=== PATIENT | female | born 1940 | race Caucasian/White ===

== ENCOUNTER 2020-12-28 12:18 | Emergency (ER) | payer MEDICARE ==
[~2020-12-28 12:18] MED LIST: ASPIR 8181 MG PO; CATAPRES 0.1MG0.1 MG PO; GLUCOPHAGE1000 MG PO; ISOSORBIDE MONO60 MG PO; KLONOPIN TAB 00.5 MG PO; LEVEMIR100 UNIT/1 SQ; LIPITOR TAB 2020 MG PO; LISINOPRIL10 MG PO; METOPROLOL TART25 MG PO; NITROSTAT0.4 MG PO; NORVASC 5 MG TAB5 MG PO; NOVOLOG 10100 UNITS1 SQ; OMEPRAZOLE40 MG PO; ZETIA 10 MG TAB10 MG PO
[2020-12-28 14:48] LABS: HEMOGLOBIN 12.3 gm/dl (12.3-15.3)
[2020-12-28 14:55] LABS: RED BLOOD COUNT 4.43 M/UL (4.00-5.10); WHITE BLOOD COUNT 14.3 K/UL (4.5-11.0)
[2020-12-28 15:09] LABS: BUN/CREATININE RATIO 18 (0-10)
== END 2020-12-28 17:15 | disposition home or self-care (01) ==
LOC: ER1 12:18
PROVIDERS: Physician Assistant
DX: D72.829 Elevated white blood cell count, unspecified (principal); E11.9 Type 2 diabetes mellitus without complications; I11.0 Hypertensive heart disease with heart failure; Z20.822 Contact with and (suspected) exposure to COVID-19; Z88.2 Allergy status to sulfonamides; Z90.710 Acquired absence of both cervix and uterus
CPT/HCPCS: 36600; 71045; 80053; 82550; 82553; 82803; 83874; 83880; 84484; 85025; 93005; 99285; U0002

== ENCOUNTER 2021-08-02 13:18 | Inpatient (IN) | payer MEDICARE, MEDICAID ==
[~2021-08-02] VITALS: Ht 162.6 cm; Wt 65.8 kg
[~2021-08-02 13:18] MED LIST changes: +METOPROLOL SUCC25 MG PO; -METOPROLOL TART25 MG PO
[2021-08-02 14:41] LABS: HEMOGLOBIN 13.2 gm/dl (12.3-15.3); RED BLOOD COUNT 4.61 M/UL (4.00-5.10); WHITE BLOOD COUNT 23.2 K/UL (4.5-11.0)
[2021-08-02 15:21] LABS: BUN/CREATININE RATIO 22 (0-10)
[2021-08-02] MEDS ORDERED: NOVOLIN N100 UNIT/1 SQ ×2 (18:49→18:50)
[2021-08-02] MEDS ORDERED: HYDROCODON-ACE1 EAC2 PO (18:51)
[2021-08-02] MEDS ORDERED: ESCITALOPRAM OX10 MG PO (18:51)
[2021-08-02] MEDS ORDERED: FUROSEMIDE40 MG PO (18:51)
[2021-08-02] MEDS ORDERED: JANUVIA 100 MG100 MG PO (18:52)
[2021-08-03 07:50] LABS: HEMOGLOBIN 11.6 gm/dl (12.3-15.3)
[2021-08-03 07:56] LABS: BUN/CREATININE RATIO 20 (0-10); RED BLOOD COUNT 4.11 M/UL (4.00-5.10); WHITE BLOOD COUNT 12.7 K/UL (4.5-11.0)
[2021-08-05 08:08] LABS: BUN/CREATININE RATIO 21 (0-10)
[2021-08-05 08:47] LABS: HEMOGLOBIN 13.2 gm/dl (12.3-15.3); RED BLOOD COUNT 4.68 M/UL (4.00-5.10); WHITE BLOOD COUNT 12.7 K/UL (4.5-11.0)
[2021-08-05] MEDS ORDERED: LEVOFLOXACIN500 MG PO (12:59)
[2021-08-05] MEDS ORDERED: METOPROLOL SUCC25 MG PO (12:59)
[2021-08-05] MEDS ORDERED: DONEPEZIL HCL5 MG PO (12:59)
[2021-08-05] MEDS ORDERED: LANTUS INS100 UTS/M1 SQ (13:00)
== END 2021-08-05 01:45 | disposition home health service (06) | DRG 871 ==
LOC: ER1 13:18 → MED SURG 4 16:30 → CDU 16:30 → MED SURG 4 19:21
PROVIDERS: Family Medicine; ADMIT Internal Medicine
DX: A41.9 Sepsis, unspecified organism (principal); J18.9 Pneumonia, unspecified organism; E87.1 Hypo-osmolality and hyponatremia; J44.0 Chronic obstructive pulmonary disease with (acute) lower respiratory infection; Z20.822 Contact with and (suspected) exposure to COVID-19; W18.30XA Fall on same level, unspecified, initial encounter; R53.81 Other malaise; E87.6 Hypokalemia; R29.6 Repeated falls; E83.42 Hypomagnesemia; E11.65 Type 2 diabetes mellitus with hyperglycemia; M19.90 Unspecified osteoarthritis, unspecified site; F03.90 Unspecified dementia, unspecified severity, without behavioral disturbance, psychotic disturbance, mood disturbance, and anxiety; Z79.01 Long term (current) use of anticoagulants; Z79.82 Long term (current) use of aspirin; Z88.1 Allergy status to other antibiotic agents; Z79.4 Long term (current) use of insulin; Z95.0 Presence of cardiac pacemaker; Z88.2 Allergy status to sulfonamides
CPT/HCPCS: 36415; 70450; 71045; 80048; 80053; 81001; 82009; 82550; 82553; 82962; 83036; 83605; 83735; 83874; 84439; 84443; 84484; 85025; 87040; 93005; 96374; 99285; J0696; J1650; J1956; J7030; U0002

== ENCOUNTER 2021-08-29 15:29 | Emergency (ER) | payer MEDICARE ==
[~2021-08-29 15:29] MED LIST changes: +DONEPEZIL HCL5 MG PO; +ESCITALOPRAM OX10 MG PO; +FUROSEMIDE40 MG PO; +HYDROCODON-ACE1 EAC2 PO; +JANUVIA 100 MG100 MG PO; +LANTUS INS100 UTS/M1 SQ; +LEVOFLOXACIN500 MG PO; +NOVOLIN N100 UNIT/1 SQ
[2021-08-29 18:35] LABS: HEMOGLOBIN 12.5 gm/dl (12.3-15.3); RED BLOOD COUNT 4.42 M/UL (4.00-5.10); WHITE BLOOD COUNT 13.8 K/UL (4.5-11.0)
[2021-08-29 19:09] LABS: BUN/CREATININE RATIO 21 (0-10)
== END 2021-08-29 21:40 | disposition home or self-care (01) ==
LOC: ER1 15:29
PROVIDERS: Emergency Medicine
DX: R10.9 Unspecified abdominal pain (principal); E11.9 Type 2 diabetes mellitus without complications; J44.9 Chronic obstructive pulmonary disease, unspecified; Z90.710 Acquired absence of both cervix and uterus; Z95.0 Presence of cardiac pacemaker; Z20.822 Contact with and (suspected) exposure to COVID-19
CPT/HCPCS: 71045; 80053; 81001; 82550; 82553; 83605; 83690; 83874; 84484; 85025; 96374; 96375; 99284; J2270; J2405; Q9967; U0002

== ENCOUNTER 2021-09-29 16:08 | Emergency (ER) | payer MEDICARE ==
[2021-09-29 18:35] LABS: HEMOGLOBIN 12.2 gm/dl (12.3-15.3); WHITE BLOOD COUNT 13.7 K/UL (4.5-11.0)
[2021-09-29 19:09] LABS: RED BLOOD COUNT 4.27 M/UL (4.00-5.10)
== END 2021-09-29 22:53 | disposition home or self-care (01) ==
LOC: ER1 16:08
PROVIDERS: Physician Assistant
DX: R16.1 Splenomegaly, not elsewhere classified (principal); E11.9 Type 2 diabetes mellitus without complications; I48.91 Unspecified atrial fibrillation; F03.90 Unspecified dementia, unspecified severity, without behavioral disturbance, psychotic disturbance, mood disturbance, and anxiety; Z90.49 Acquired absence of other specified parts of digestive tract; Z88.2 Allergy status to sulfonamides
CPT/HCPCS: 80053; 81001; 83690; 85025; 99284; Q9967

== ENCOUNTER 2021-10-30 21:48 | Emergency (ER) | payer MEDICARE ==
[2021-10-30 23:08] LABS: HEMOGLOBIN 12.2 gm/dl (12.3-15.3); RED BLOOD COUNT 4.36 M/UL (4.00-5.10); WHITE BLOOD COUNT 13.9 K/UL (4.5-11.0)
[2021-10-31 00:04] LABS: BUN/CREATININE RATIO 23 (0-10)
[2021-10-31] MEDS ORDERED: OMNICEF 300 MG300 MG PO (02:33)
== END 2021-10-31 02:42 | disposition home or self-care (01) ==
LOC: ER1 21:48
PROVIDERS: Family Medicine
DX: N39.0 Urinary tract infection, site not specified (principal); I10 Essential (primary) hypertension; F03.90 Unspecified dementia, unspecified severity, without behavioral disturbance, psychotic disturbance, mood disturbance, and anxiety; E11.9 Type 2 diabetes mellitus without complications; Z99.81 Dependence on supplemental oxygen; Z87.09 Personal history of other diseases of the respiratory system; Z20.822 Contact with and (suspected) exposure to COVID-19; Z79.4 Long term (current) use of insulin
CPT/HCPCS: 70450; 71045; 80053; 81001; 82550; 82553; 83605; 83874; 83880; 84484; 85025; 87086; 93005; 99284; U0002

== ENCOUNTER 2022-01-04 19:08 | Emergency (ER) | payer MEDICARE, MEDICAID ==
[~2022-01-04 19:08] MED LIST changes: -JANUVIA 100 MG100 MG PO; +OMNICEF 300 MG300 MG PO
[2022-01-04 20:10] LABS: HEMOGLOBIN 12.8 gm/dl (12.3-15.3); RED BLOOD COUNT 4.59 M/UL (4.00-5.10); WHITE BLOOD COUNT 16.1 K/UL (4.5-11.0)
[2022-01-04 20:36] LABS: BUN/CREATININE RATIO 18 (0-10)
[2022-01-04] MEDS ORDERED: PYRIDIUM200 MG PO (21:50)
[2022-01-04] MEDS ORDERED: ONDANSETRON ODT4 MG SL (21:50)
[2022-01-04] MEDS ORDERED: CEFUROXIME500 MG PO (21:50)
== END 2022-01-04 22:15 | disposition home or self-care (01) ==
LOC: ER1 19:08
PROVIDERS: Physician Assistant Medical
DX: N39.0 Urinary tract infection, site not specified (principal); I11.9 Hypertensive heart disease without heart failure; E11.9 Type 2 diabetes mellitus without complications; I48.91 Unspecified atrial fibrillation; Z88.2 Allergy status to sulfonamides; Z87.891 Personal history of nicotine dependence
CPT/HCPCS: 71045; 80053; 81001; 82550; 82553; 83605; 83690; 84484; 85025; 87040; 96374; 99284; J2405; Q9967

== ENCOUNTER 2022-01-06 18:41 | Inpatient (IN) | payer MEDICARE, MEDICAID ==
[~2022-01-06] VITALS: Ht 162.6 cm; Wt 60.1 kg
[~2022-01-06 18:41] MED LIST changes: +CEFUROXIME500 MG PO; +ONDANSETRON ODT4 MG SL; +PYRIDIUM200 MG PO
[2022-01-06 20:16] LABS: HEMOGLOBIN 11.2 gm/dl (12.3-15.3); WHITE BLOOD COUNT 16.5 K/UL (4.5-11.0)
[2022-01-06 20:42] LABS: BUN/CREATININE RATIO 28 (0-10)
[2022-01-07 04:56] LABS: BUN/CREATININE RATIO 26 (0-10)
[2022-01-07] MEDS ORDERED: LANTUS INS100 UTS/M1 SQ (10:11)
[2022-01-07] MEDS ORDERED: ZOFRAN ODT 4 MG4 MG GT (10:14)
[2022-01-07] MEDS ORDERED: METOPROLOL SUCC25 MG PO (10:32)
[2022-01-07] MEDS ORDERED: NOVOLIN N100 UNIT/2 SQ (18:50)
[2022-01-07] MEDS ORDERED: JANUVIA 100 MG100 MG PO (18:52)
[2022-01-08 03:32] LABS: BUN/CREATININE RATIO 31 (0-10)
[2022-01-08 04:14] LABS: HEMOGLOBIN 10.8 gm/dl (12.3-15.3); RED BLOOD COUNT 3.87 M/UL (4.00-5.10); WHITE BLOOD COUNT 12.7 K/UL (4.5-11.0)
[2022-01-09 06:37] LABS: HEMOGLOBIN 9.5 gm/dl (12.3-15.3); WHITE BLOOD COUNT 12.2 K/UL (4.5-11.0)
[2022-01-09 06:38] LABS: RED BLOOD COUNT 3.46 M/UL (4.00-5.10)
[2022-01-09 07:11] LABS: BUN/CREATININE RATIO 38 (0-10)
[2022-01-10 06:35] LABS: HEMOGLOBIN 10.2 gm/dl (12.3-15.3); RED BLOOD COUNT 3.72 M/UL (4.00-5.10); WHITE BLOOD COUNT 14.8 K/UL (4.5-11.0)
[2022-01-10 07:52] LABS: BUN/CREATININE RATIO 34 (0-10)
[2022-01-10] MEDS ORDERED: LOPRESSOR 50 MG50 MG PO (08:37)
[2022-01-10] MEDS ORDERED: OMNICEF 300 MG300 MG PO (08:37)
[2022-01-11 06:52] LABS: BUN/CREATININE RATIO 33 (0-10)
[2022-01-11] MEDS ORDERED: LOPRESSOR 50 MG50 MG PO (08:11)
== END 2022-01-11 10:33 | disposition home or self-care (01) | DRG 871 ==
LOC: ER1 18:41 → PROG CARE 01-07 00:58 → CDU 01-07 00:58 → PROG CARE 01-07 04:23 → MED SURG 4 01-08 19:48
PROVIDERS: Internal Medicine; Physician Assistant; ADMIT Internal Medicine
PROC: 3E03329 Introduction of Other Anti-infective into Peripheral Vein, Percutaneous Approach (ICD-10-PCS; principal; 2022-01-07)
PROC: B24BZZZ Ultrasonography of Heart with Aorta (ICD-10-PCS; 2022-01-07)
DX: A41.9 Sepsis, unspecified organism (principal); J96.21 Acute and chronic respiratory failure with hypoxia; J90 Pleural effusion, not elsewhere classified; N10 Acute pyelonephritis; I11.9 Hypertensive heart disease without heart failure; E11.9 Type 2 diabetes mellitus without complications; F03.90 Unspecified dementia, unspecified severity, without behavioral disturbance, psychotic disturbance, mood disturbance, and anxiety; R29.6 Repeated falls; Z20.822 Contact with and (suspected) exposure to COVID-19; E87.6 Hypokalemia; I25.10 Atherosclerotic heart disease of native coronary artery without angina pectoris; J44.9 Chronic obstructive pulmonary disease, unspecified; I48.0 Paroxysmal atrial fibrillation; Z99.81 Dependence on supplemental oxygen; Z95.0 Presence of cardiac pacemaker; Z79.899 Other long term (current) drug therapy; Z90.49 Acquired absence of other specified parts of digestive tract; Z90.710 Acquired absence of both cervix and uterus; Z82.49 Family history of ischemic heart disease and other diseases of the circulatory system; Z83.3 Family history of diabetes mellitus; Z87.891 Personal history of nicotine dependence
CPT/HCPCS: ECHO; 36415; 36600; 71045; 80048; 80053; 81001; 82550; 82553; 82607; 82652; 82746; 82803; 82962; 83605; 83690; 83735; 83880; 84100; 84439; 84443; 84484; 84550; 85025; 85027; 86140; 87040; 87086; 93005; 93306; 94760; 96365; 96374; 96375; 97162; 97166; 99284; 99285; J1650; J1940; J2185; J2405; J2543; Q9967; U0002

== ENCOUNTER 2022-06-17 20:12 | Inpatient (IN) | payer MEDICARE ==
[~2022-06-17] VITALS: Ht 157.5 cm; Wt 63.5 kg
[~2022-06-17 20:12] MED LIST changes: +JANUVIA 100 MG100 MG PO; +LOPRESSOR 50 MG50 MG PO; +NOVOLIN N100 UNIT/2 SQ; +ZOFRAN ODT 4 MG4 MG PO
[2022-06-17 21:01] LABS: HEMOGLOBIN 13.7 gm/dl (12.3-15.3); RED BLOOD COUNT 4.88 M/UL (4.00-5.10); WHITE BLOOD COUNT 20.1 K/UL (4.5-11.0)
[2022-06-17 21:57] LABS: BUN/CREATININE RATIO 24 (0-10)
[2022-06-18 12:56] LABS: HEMOGLOBIN 12.9 gm/dl (12.3-15.3); RED BLOOD COUNT 4.68 M/UL (4.00-5.10); WHITE BLOOD COUNT 15.9 K/UL (4.5-11.0)
[2022-06-18 13:07] LABS: BUN/CREATININE RATIO 28 (0-10)
[2022-06-18] MEDS ORDERED: CALCIUM 600 +1 EAC3 PO (13:59)
[2022-06-18] MEDS ORDERED: LIDOCAINE1 EAC1 TP (14:00)
[2022-06-18] MEDS ORDERED: MIRALAX 119 GR119 GM PO (14:00)
[2022-06-18] MEDS ORDERED: METOPROLOL TART50 MG PO (14:02)
[2022-06-19 02:48] LABS: HEMOGLOBIN 12.8 gm/dl (12.3-15.3); RED BLOOD COUNT 4.65 M/UL (4.00-5.10)
[2022-06-19] MEDS ORDERED: METFORMIN HCL500 MG PO (11:34)
[2022-06-20 02:53] LABS: HEMOGLOBIN 12.3 gm/dl (12.3-15.3); RED BLOOD COUNT 4.46 M/UL (4.00-5.10); WHITE BLOOD COUNT 15.4 K/UL (4.5-11.0)
[2022-06-20 20:08] LABS: AMPHETAMINES, URINE Negative ng/mL (Cutoff=1000); BARBITURATE Negative ng/mL (Cutoff=200); BENZODIAZEPINES Negative ng/mL (Cutoff=200); CANNABINOIDS Negative ng/mL (Cutoff=20); COCAINE (METABOLITE) Negative ng/mL (Cutoff=300); CREATININE 30.5 mg/dL (20.0-300.0); MEPERIDINE Negative ng/mL (Cutoff=200); METHADONE Negative ng/mL (Cutoff=300); OPIATES Negative ng/mL (Cutoff=300); PHENCYCLIDINE Negative ng/mL (Cutoff=25); PROPOXYPHENE Negative ng/mL (Cutoff=300)
[2022-06-21 05:13] LABS: HEMOGLOBIN 12.6 gm/dl (12.3-15.3); RED BLOOD COUNT 4.58 M/UL (4.00-5.10); WHITE BLOOD COUNT 14.6 K/UL (4.5-11.0)
[2022-06-21 06:15] LABS: BUN/CREATININE RATIO 18 (0-10)
--- NOTE | 2022-06-21 20:09 | NUR ---
PT BP ELEVATED PT WAS GIVEN PRN BP MED
[2022-06-23 02:56] LABS: HEMOGLOBIN 12.5 gm/dl (12.3-15.3); RED BLOOD COUNT 4.52 M/UL (4.00-5.10); WHITE BLOOD COUNT 16.6 K/UL (4.5-11.0)
[2022-06-24 06:51] LABS: HEMOGLOBIN 12.9 gm/dl (12.3-15.3); RED BLOOD COUNT 4.64 M/UL (4.00-5.10); WHITE BLOOD COUNT 16.1 K/UL (4.5-11.0)
[2022-06-24 07:23] LABS: BUN/CREATININE RATIO 18 (0-10)
[2022-06-24] MEDS ORDERED: LISINOPRIL10 MG PO (09:33)
[2022-06-24] MEDS ORDERED: ZYVOX600 MG PO (09:33)
[2022-06-24] MEDS ORDERED: AMLODIPINE BESYL5 MG PO (09:33)
[2022-06-24] MEDS ORDERED: CARVEDILOL12.5 MG PO (09:33)
[2022-06-24] MEDS ORDERED: AMOX TR-K CLV1 EAC4 PO (09:33)
== END 2022-06-24 18:30 | disposition home health service (06) | DRG 871 ==
LOC: ER1 20:12 → CDU 23:50 → M/S 23:50
PROVIDERS: Internal Medicine Infectious Disease; Physician Assistant; Physician Assistant Medical; ADMIT Family Medicine
DX: A41.02 Sepsis due to Methicillin resistant Staphylococcus aureus (principal); G92.8 Other toxic encephalopathy; J69.0 Pneumonitis due to inhalation of food and vomit; J96.11 Chronic respiratory failure with hypoxia; F03.90 Unspecified dementia, unspecified severity, without behavioral disturbance, psychotic disturbance, mood disturbance, and anxiety; E11.9 Type 2 diabetes mellitus without complications; I10 Essential (primary) hypertension; I49.5 Sick sinus syndrome; I25.10 Atherosclerotic heart disease of native coronary artery without angina pectoris; Z20.822 Contact with and (suspected) exposure to COVID-19; R16.1 Splenomegaly, not elsewhere classified; Z95.0 Presence of cardiac pacemaker; Z91.81 History of falling; Z99.81 Dependence on supplemental oxygen; Z90.49 Acquired absence of other specified parts of digestive tract; Z90.710 Acquired absence of both cervix and uterus; Z82.49 Family history of ischemic heart disease and other diseases of the circulatory system; Z83.3 Family history of diabetes mellitus; Z95.1 Presence of aortocoronary bypass graft; I25.2 Old myocardial infarction; Z88.2 Allergy status to sulfonamides; Z87.891 Personal history of nicotine dependence; Z79.82 Long term (current) use of aspirin; Z87.440 Personal history of urinary (tract) infections; Z79.4 Long term (current) use of insulin
CPT/HCPCS: 36415; 70450; 71045; 71250; 80048; 80053; 80307; 81001; 82140; 82550; 82553; 82803; 82962; 83036; 83605; 83735; 83880; 84439; 84443; 84484; 85007; 85025; 85027; 85379; 85610; 85730; 86140; 87040; 87081; 87086; 93005; 96374; 96376; 97116-GP-CQ; 97161; 97530-GP-CQ; 99285; G0378; J0360; J1650; J2020; J2543; Q9967; U0002

== ENCOUNTER 2022-06-28 10:40 | Inpatient (IN) | payer MEDICARE ==
[~2022-06-28] VITALS: Ht 157 cm; Wt 57.8 kg
[~2022-06-28 10:40] MED LIST changes: +AMLODIPINE BESYL5 MG PO; +AMOX TR-K CLV1 EAC4 PO; +CALCIUM 600 +1 EAC3 PO; +CARVEDILOL12.5 MG PO; +LIDOCAINE1 EAC1 TP; +METFORMIN HCL500 MG PO; +METOPROLOL TART50 MG PO; +MIRALAX 119 GR119 GM PO; +ZYVOX600 MG PO
[2022-06-28 12:06] LABS: HEMOGLOBIN 11.9 gm/dl (12.3-15.3); RED BLOOD COUNT 4.3 M/UL (4.00-5.10); WHITE BLOOD COUNT 15.4 K/UL (4.5-11.0)
[2022-06-28 12:34] LABS: BUN/CREATININE RATIO 21 (0-10)
[2022-06-29 06:10] LABS: HEMOGLOBIN 11.5 gm/dl (12.3-15.3); RED BLOOD COUNT 4.19 M/UL (4.00-5.10); WHITE BLOOD COUNT 14.5 K/UL (4.5-11.0)
[2022-06-29 08:28] LABS: BUN/CREATININE RATIO 24 (0-10)
[2022-06-30 04:21] LABS: BUN/CREATININE RATIO 32 (0-10)
[2022-07-01 03:38] LABS: HEMOGLOBIN 11.6 gm/dl (12.3-15.3); RED BLOOD COUNT 4.21 M/UL (4.00-5.10); WHITE BLOOD COUNT 16.4 K/UL (4.5-11.0)
[2022-07-02 04:43] LABS: HEMOGLOBIN 11.4 gm/dl (12.3-15.3); RED BLOOD COUNT 4.18 M/UL (4.00-5.10); WHITE BLOOD COUNT 17.4 K/UL (4.5-11.0)
[2022-07-03 04:42] LABS: HEMOGLOBIN 11.2 gm/dl (12.3-15.3); RED BLOOD COUNT 4.11 M/UL (4.00-5.10); WHITE BLOOD COUNT 16.7 K/UL (4.5-11.0)
[2022-07-03] MEDS ORDERED: LISINOPRIL10 MG PO (17:42)
[2022-07-03] MEDS ORDERED: COMBIVENT RESPIM4 GM INH (17:54)
[2022-07-03] MEDS ORDERED: DOXYCYCLINE HY100 M2 PO (17:54)
[2022-07-03] MEDS ORDERED: AMOX TR-K CLV1 EAC4 PO (17:54)
[2022-07-03] MEDS ORDERED: LASIX TAB 20 MG20 MG PO (18:06)
[2022-07-03] MEDS ORDERED: K-TAB ER10 MEQ PO (18:06)
[2022-07-03] MEDS ORDERED: COLACE100 MG PO (18:12)
== END 2022-07-03 18:41 | disposition home or self-care (01) | DRG 291 ==
LOC: ER1 10:40 → CDU 15:13 → MED SURG 4 17:23
PROVIDERS: Internal Medicine; Physician Assistant; ADMIT Internal Medicine
DX: I11.0 Hypertensive heart disease with heart failure (principal); I50.33 Acute on chronic diastolic (congestive) heart failure; I49.5 Sick sinus syndrome; E11.9 Type 2 diabetes mellitus without complications; J44.9 Chronic obstructive pulmonary disease, unspecified; I25.10 Atherosclerotic heart disease of native coronary artery without angina pectoris; F03.90 Unspecified dementia, unspecified severity, without behavioral disturbance, psychotic disturbance, mood disturbance, and anxiety; D72.828 Other elevated white blood cell count; K59.00 Constipation, unspecified; Z87.01 Personal history of pneumonia (recurrent); Z95.0 Presence of cardiac pacemaker; Z90.49 Acquired absence of other specified parts of digestive tract; Z90.710 Acquired absence of both cervix and uterus; Z87.891 Personal history of nicotine dependence; Z82.49 Family history of ischemic heart disease and other diseases of the circulatory system; Z79.4 Long term (current) use of insulin; Z79.01 Long term (current) use of anticoagulants; Z79.82 Long term (current) use of aspirin; Z88.2 Allergy status to sulfonamides; Z88.8 Allergy status to other drugs, medicaments and biological substances; Z83.3 Family history of diabetes mellitus
CPT/HCPCS: 36415; 70450; 71045; 80048; 80053; 81001; 82550; 82553; 82565; 82962; 83605; 83690; 83735; 83880; 84484; 85025; 85027; 85379; 87040; 87086; 93005; 94640; 94760; 96374; 96375; 97161; 99285; G0378; J0696; J1335; J1650; J1940; P9047; Q9967